=== PATIENT | female | born 1990 | race African-American/Black ===

== ENCOUNTER 2018-04-29 23:39 | Emergency (ER) | payer MEDICAID ==
[~2018-04-29] VITALS: Ht 170.2 cm; Wt 122.5 kg
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
[2018-04-29] MEDS ORDERED: DIAZEPAM 5 MG TAB PO ONE (23:45)
[2018-04-29] MEDS ORDERED: KETOROLAC 30 MG/ML VIAL IM ONE (23:45)
[2018-04-29 23:46] VITALS: BP 107/71
[2018-04-30] MEDS ORDERED: fentaNYL 0.05 MG/ML VIAL NS ONE (00:40)
--- NOTE | 2018-04-30 00:41 | NUR ---
PT C/O 10/ PAIN THROUGHOUT BODY DESPITE MEDS, ER MD MADE AWARE.
--- NOTE | 2018-04-30 00:42 | NUR ---
chp at bedside
--- NOTE | 2018-04-30 01:00 | NUR ---
PT REFUSED INTRANASAL FENTANYL, PT STATED "I DON'T WANT THAT." PT REQUESTING FOR NORCO PO. PT ALSO C/O BUMP ON FOREHEAD, REQUESTING FOR CT SCAN, ER MADE AWARE.
--- NOTE | 2018-04-30 01:20 | NUR ---
PT REFUSED CT SCAN DESPITE EDUCATION, PT STATED "THAT'S GONNA TAKE TOO LONG, I JUST WANT TO GO." ER MADE AWARE.
--- NOTE | 2018-04-30 01:24 | NUR ---
ER AT BEDSIDE
[2018-04-30] MEDS ORDERED: HYDROcodone/APAP 5/325 MG 1 TAB TAB PO ONE (01:30)
--- NOTE | 2018-04-30 01:45 | NUR ---
PT R WRIST ABRASION, WOUND CARE PERFORMED.
[2018-04-30 02:09] VITALS: BP 147/98
--- NOTE | 2018-04-30 02:09 | NUR ---
Patient discharged with v/s stable. Written and verbal after care instructions given and explained. Patient alert, oriented and verbalized understanding of instructions. Ambulatory with steady gait. All questions addressed prior to discharge. ID band removed. Patient advised to follow up with PMD. Rx of NORCO, VENTOLIN, NAPROSYN, FLEXERIL given. Patient educated on indication of medication including possible reaction and side effects. Opportunity to ask questions provided and answered.
== END 2018-04-30 02:09 | disposition home or self-care (01) ==
LOC: MED 23:39
DX: S00.83XA Contusion of other part of head, initial encounter (principal); S70.12XA Contusion of left thigh, initial encounter; S63.601A Unspecified sprain of right thumb, initial encounter; R07.81 Pleurodynia; M25.572 Pain in left ankle and joints of left foot; V43.62XA Car passenger injured in collision with other type car in traffic accident, initial encounter; Y93.89 Activity, other specified; Y92.411 Interstate highway as the place of occurrence of the external cause; Y99.8 Other external cause status
CPT/HCPCS: 71045; 81002; 81025; 96372; 99283; J1885; Q0092; J3010